=== PATIENT | male | born 1990 | race American Indian/Alaskan Native ===

== ENCOUNTER 2018-05-04 07:24 | Day surgery (SDC) | payer MEDICAID ==
[2018-04-23 10:56] VITALS: BMI 26.9
[2018-05-04] MEDS ORDERED: Morphine 10 mg/5 ml Oral Soln PO PRN (08:31)
[2018-05-04] MEDS ORDERED: Dextrose 5%/0.45% NS 1,000 ML IV SCH (08:45)
[2018-05-04] MEDS ORDERED: Propofol 10 mg/ml Inj (20 ML) ONE (08:47)
[2018-05-04] MEDS ORDERED: ceFAZolin 1 gm in NS 2 GM/200 ML BAG IVPB ONE (08:54)
[2018-05-04] MEDS ORDERED: HYDROmorphone 0.5 mg/0.5 ml ISec IVP PRN (09:00)
[2018-05-04] MEDS ORDERED: Oxymetazoline 0.05% Nasal Spray (30 ml) NS ONE (11:00)
[2018-05-04 12:57] VITALS: O2SAT 100
[2018-05-04 13:01] VITALS: BP 136/70; PULSE 83; RESP 16; TEMP 97.7
--- NOTE | 2018-05-04 13:30 | OP ---
PROCEDURE DATE: 05/04/2018 PREOPERATIVE DIAGNOSIS: Chronic tonsillitis. POSTOPERATIVE DIAGNOSIS: Chronic tonsillitis. PROCEDURE: Tonsillectomy. SURGEON: Kanu Zelaya MD SIGNIFICANT FINDINGS: Chronic infected tonsils. DESCRIPTION OF PROCEDURE: The patient was brought into the room, placed in supine position. Anesthesia was initiated through an ET tube. The patient was draped in usual manner. Mouth gag was placed in oral cavity, opened and suspended on the Stock screen vent binder the usual manner. Right tonsil was grabbed, pulled medially. Incision was made in the anterior tonsillar pillar using coblation. Dissection was done between tonsil and tonsillar fossa using coblation until the tonsil was removed. Bleeding was controlled using coblation. Next, the other tonsil was grabbed, pulled medially. Incision was made in the anterior tonsillar pillar using coblation. Dissection was done between tonsil and tonsillar fossa using coblation until the tonsil was removed. Bleeding was controlled using coblation. Both tonsillar beds were rubbed vigorously with coblation wand. No bleeding was noted. Mouth gag was let down for 30 seconds, put back up, no bleeding was noted. Mouth gag was taken down and removed. The patient was taken off anesthesia and taken to recovery room in a stable manner. Kanu Zelaya MD
== END 2018-05-04 11:24 | disposition home or self-care (01) ==
LOC: C.SDS 07:24
PROVIDERS: ATTEND Otolaryngology
DX: J35.01 Chronic tonsillitis (principal)
CPT/HCPCS: 42826; 88304; J0690; J2405; J2704; J3010

== ENCOUNTER 2018-05-04 13:16 | Day surgery (SDC) | payer BC, MEDICAID ==
[2018-05-04 13:16] VITALS: BMI 26.9
--- NOTE | 2018-05-04 14:20 | C.PDOC ---
History Of Present Illness 28 y/o male presents to the ED s/p tonsillectomy this morning, performed with Dr. Zelaya. Patient returns to the hospital due to noticing persistent bleeding. Patient otherwise denies any cough, SOB, fever, vomiting, or other complaints. Time Seen by Provider: 05/04/18 13:29 Chief Complaint (Nursing): ENT Problem History Per: Patient History/Exam Limitations: None Onset/Duration Of Symptoms: Hrs Current Symptoms Are (Timing): Still Present Past Medical History Reviewed: Historical Data, Nursing Documentation, Vital Signs Vital Signs: Last Vital Signs Temp 97.6 F 05/04/18 13:22 Pulse 104 H 05/04/18 13:22 Resp 20 05/04/18 13:22 BP 128/76 05/04/18 13:22 Pulse Ox 100 05/04/18 13:22 Surgical History: Tonsillectomy (05/04/18) Family History: States: No Known Family Hx - Social History Hx Alcohol Use: No Hx Substance Use: No - Immunization History Hx Tetanus Toxoid Vaccination: No Hx Influenza Vaccination: No Hx Pneumococcal Vaccination: No Review Of Systems Constitutional: Negative for: Fever, Chills, Sweats Eyes: Negative for: Redness, Other (scleral icterus) ENT: Positive for: Other (Oral bleeding). Negative for: Ear Pain Cardiovascular: Negative for: Chest Pain, Palpitations Respiratory: Negative for: Cough, Shortness of Breath Gastrointestinal: Negative for: Nausea, Vomiting Genitourinary: Negative for: Dysuria, Hematuria Musculoskeletal: Negative for: Back Pain Skin: Negative for: Rash Neurological: Negative for: Weakness, Numbness, Headache Physical Exam - Physical Exam Appears: Non-toxic, No Acute Distress Skin: Normal Color, Warm, No Rash Head: Atraumatic, Normacephalic Eye(s): bilateral: Normal Inspection (no scleral icterus), PERRL, EOMI Oral Mucosa: Moist Throat: Other (Airway is patent; Mild oozing from the bilateral incisions, no obvious arterial bleeding) Neck: Normal ROM, Supple, Other (Muffled voice, spitting out blood) Chest: Symmetrical Cardiovascular: Rhythm Regular, No Murmur Respiratory: Normal Breath Sounds, No Accessory Muscle Use, Other (Normal inspiratory effort) Gastrointestinal/Abdominal: Soft, No Distention Back: Other (Ambulating with steady upright gait) Extremity: Bilateral: Atraumatic, Normal ROM Pulses: Left Radial: Normal, Right Radial: Normal Neurological/Psych: Oriented x3, Normal Cranial Nerves (grossly intact) ED Course And Treatment O2 Sat by Pulse Oximetry: 100 (RA) Pulse Ox Interpretation: Normal - Physician Consult Information Time Consulting Physician Contacted: 14:30 Physician Contacted: Kanu Zelaya (Patient accepted for admission, Dr. Zelaya to take patient to the OR) Disposition - Disposition Disposition: HOSPITALIZED Disposition Time: 14:19 Condition: FAIR - Clinical Impression Clinical Impression: Post-op bleeding - PA / [employer] / Resident Statement MD/DO has reviewed & agrees with the documentation as recorded. - Scribe Statement The provider has reviewed the documentation as recorded by the Sharad Alanis All medical record entries made by the Sharad were at my direction and personally dictated by me. I have reviewed the chart and agree that the record accurately reflects my personal performance of the history, physical exam, medical decision making, and the department course for this patient. I have also personally directed, reviewed, and agree with the discharge instructions and disposition.
[2018-05-04] MEDS ORDERED: HYDROmorphone 0.5 mg/0.5 ml ISec IVP PRN (15:22)
[2018-05-04] MEDS ORDERED: Succinylcholine Chloride 20 mg/ml Syr (5 ml) IV ONE (15:32)
[2018-05-04] MEDS ORDERED: Propofol 10 mg/ml Inj (20 ML) ONE ×3 (15:32→15:56)
[2018-05-04] MEDS ORDERED: Morphine 10 mg/5 ml Oral Soln PO PRN (15:33)
[2018-05-04] MEDS ORDERED: Dextrose 5%/0.45% NS 1,000 ML IV SCH (15:45)
[2018-05-04] MEDS ORDERED: Lactated Ringer's 500 ML IV ONE ×2 (16:20→17:30)
[2018-05-04 18:00] VITALS: RESP 18; O2SAT 98
[2018-05-04 18:48] VITALS: BP 134/72; PULSE 94; TEMP 97.8
--- NOTE | 2018-05-10 11:12 | OP ---
PROCEDURE DATE: 05/04/2018 PREOPERATIVE DIAGNOSIS: Post tonsillectomy bleed. POSTOPERATIVE DIAGNOSIS: Post tonsillectomy bleed. SIGNIFICANT FINDINGS: Bleeding in the right tonsillar fossa. SURGEON: Kanu Zelaya MD. DESCRIPTION OF PROCEDURE: The patient was brought into the room, placed in supine position. Anesthesia initiated through an ET tube. The patient was draped in the usual manner. Mouth gag was placed in oral cavity, opened and suspended on the Stock school standards coach the usual manner. Bleeding area was noted in the right tonsillar fossa. Coblation was used to control bleeding. Blood was suctioned out of the stomach using an OG tube. The mouth gag was taken out of the mouth. The patient was taken off the anesthesia and taken to recovery room in stable manner. Kanu Zelaya MD
== END 2018-05-04 18:48 | disposition home or self-care (01) ==
LOC: C.ER 13:16 → C.SDS 13:16
PROVIDERS: ATTEND Otolaryngology
DX: J95.830 Postprocedural hemorrhage of a respiratory system organ or structure following a respiratory system procedure (principal)
CPT/HCPCS: 42962; 99285; J2001; J2704; J3010; J7040; J7120